=== PATIENT | female | born 1960 | race African-American/Black ===

== ENCOUNTER → 2021-08-21 | Outpatient (CLI) | payer BC, OTHER ==
[~2021-08-21] MED LIST: ALLEGRA ALLERG180 MG PO; ATORVASTATIN CA20 MG PO; CARVEDILOL25 MG PO; HYDRALAZINE 10M10 MG PO; KLOR-CON 10 ER10 MEQ PO; LEXAPRO 10 MG T10 M2 PO; METFORMIN HCL500 M1 PO; PERCOCET 7.5-31 EAC1 PO; PRINIVIL40 MG PO; PROAIR HFA8.5 GM INH; TORSEMIDE10 MG PO; TRAMADOL 50 MG50 MG PO; TYLENOL EXTRA500 MG PO
== END ==
LOC: LAB 08:35
PROVIDERS: ATTEND Student in an Organized Health Care Education/Training Program
DX: Z01.812 Encounter for preprocedural laboratory examination (principal); Z20.822 Contact with and (suspected) exposure to COVID-19

== ENCOUNTER 2021-08-22 06:07 | Day surgery (SDC) | payer BC, OTHER ==
[~2021-08-22] VITALS: Ht 170.2 cm; Wt 172.4 kg
--- NOTE | ~2021-08-22 | O ---
[facility] [place] [address] OPERATIVE REPORT Name: KEN RACHEL Room #: 150-1 [facility] M.R.#: [id number] Admission: 08/22/21 Attend Phys: Alphonse Montgomery MD Discharge: Date of : 60 Report #: [id number] THIS REPORT FOR: cc: Akshat Nash MD, John J. MD Kneidel,Alphonse Mary MD ~ DATE OF SERVICE: 08/22/2021 PREOPERATIVE DIAGNOSES: 1. Left great toe proximal phalanx fracture. 2. Left hallux valgus. POSTOPERATIVE DIAGNOSES: 1. Left great toe proximal phalanx fracture. 2. Left hallux valgus. PROCEDURES: 1. Left foot excision of great toe proximal phalangeal fracture with capsular repair. 2. Left foot Chevron type osteotomy. SURGEON: Alphonse Montgomery MD ELECTRICAL TECH/PROJECT MANAGER: None. ANESTHESIA: General. ESTIMATED BLOOD LOSS: Minimal. DRAINS: No drains. TOURNIQUET TIME: 45 minutes. DESCRIPTION OF PROCEDURE: The patient was brought to the operating room where she was placed under general anesthesia. Once under adequate general anesthesia, her left lower extremity was prepped and draped in a sterile manner. The extremity was elevated, exsanguinated, and a tourniquet placed to 300 mmHg. A dorsomedial incision was made overlying the first metatarsophalangeal joint. This was dissected down through the soft tissue to the joint capsule, which was then incised in line with the incision. Exposure was made of the proximal metatarsal and the fracture fragment was excised there. A separate anterior to posterior limb of the incision was made at this point as well to allow repair of the capsule. Exposure of the medial eminence was then achieved and a sagittal saw was used to resect this. Once resected, a Chevron type osteotomy was then performed with a sagittal saw as well. The capital fragment was translated laterally approximately 1 cm. Fixation was achieved with a single 4.[address] [address] OPERATIVE REPORT Name: KEN RACHEL Room #: 150-1 [facility] M..#: [id number] Admission: 08/22/21 Attend Phys: Alphonse Montgomery MD Discharge: Date of : 60 Report #: [id number] cannulated screw, placed under fluoroscopic guidance, a sagittal saw was used to resect the remaining medial overhang. The wound was then irrigated copiously and the capsular repair was achieved with a suture anchor from [employer] 2.7 mm. Once this was in place, the capsule was able to be repaired to the base of the proximal phalanx of the great toe. Wound was irrigated once again copiously and the remaining capsule was closed with 0 FiberWire. The wound was irrigated once again and 2-0 Vicryl was used in subcutaneous tissues and carleen were used for the skin. The wounds were dressed with Xeroform, 4 x 4's, and sterile soft compressive dressing was placed. Tourniquet was let down at approximately 45 minutes. Toes were pink and warm. Good capillary refill. There were no complications from the procedure. The patient tolerated the procedure well and was to the recovery room without incident. By: [id number] Alphonse Montgomery MD /nt
[~2021-08-22 06:07] MED LIST changes: -PERCOCET 7.5-31 EAC1 PO
[2021-08-22 06:57] VITALS: BP 159/99
[2021-08-22 07:07] LABS: CREATININE 0.8 mg/dL (0.6-1.0); POTASSIUM 3.9 mmol/L (3.5-5.1)
--- NOTE | 2021-08-22 07:36 | EKG ---
[address] [place] [employer] [place] [address] ELECTROCARDIOGRAM REPORT Name: KEN RACHEL Room #: 150-1 [facility]#: [id number] Admission: 08/22/21 Attend Phys: Alphonse Montgomery MD Discharge: Date of : 60 Report #: [id number] [facility] Test Date: 2021-08-22 Test Time: 06:47:55 Pat Name: KEN RACHEL Department: Room: [facility] Gender: F Word [employer] Supervisor: MICHAEL : 1960 Requested By: Alphonse Montgomery Order Number: [id number] MD: Jomar Schaeffer Measurements Intervals [place] Rate: 96 P: 256 ND: 171 QRS: 28 QRSD: 81 T: 22 QT: 369 QTc: 467 Interpretive Statements Sinus or ectopic atrial rhythm Low voltage, precordial leads Minimal ST depression, inferior leads No previous ECG available for comparison Electronically Signed On 08-22-2021 7:35:53 CDT by Jomar Schaeffer [email or web address] <ELECTRONICALLY SIGNED> By: Jomar Schaeffer MD, [facility] 08/22/21 0735 0647 6 Jomar Schaeffer MD, FAC /EPI
[2021-08-22] MEDS ORDERED: PERCOCET 7.5-31 EAC1 PO (08:54)
[2021-08-22 09:10] VITALS: BP 159/99
== END 2021-08-22 10:15 | disposition home or self-care (01) ==
LOC: OR → TBA 06:12 → OR 10:02
PROVIDERS: ATTEND Orthopaedic Surgery Foot and Ankle Surgery
DX: S92.411A Displaced fracture of proximal phalanx of right great toe, initial encounter for closed fracture (principal); M20.12 Hallux valgus (acquired), left foot; I10 Essential (primary) hypertension; E78.00 Pure hypercholesterolemia, unspecified; J45.909 Unspecified asthma, uncomplicated; F32.9 Major depressive disorder, single episode, unspecified; Z98.890 Other specified postprocedural states; Z79.899 Other long term (current) drug therapy; X58.XXXA Exposure to other specified factors, initial encounter; Y93.89 Activity, other specified; Y92.89 Other specified places as the place of occurrence of the external cause; Y99.8 Other external cause status
CPT/HCPCS: 50010; 50101; 50386; 50951; 51122; 51291; 51412; 56524; 57091; 57179; 59008; 62110; 62900; 70005